=== PATIENT | female | born 1950 | race Caucasian/White ===

== ENCOUNTER 2021-04-05 13:28 | Day surgery (SDC) | payer MEDICARE, OTHER ==
[~2021-04-05] VITALS: Ht 165.1 cm; Wt 90.7 kg
[2021-04-05] MEDS ORDERED: ALEN70 (13:59)
[2021-04-05] MEDS ORDERED: ATEN25 (13:59)
[2021-04-05] MEDS ORDERED: ALLEGRA ALLERG180 MG (14:00)
[2021-04-05] MEDS ORDERED: DICLOFENAC SOD100 GM (14:00)
[2021-04-05] MEDS ORDERED: Flonase 0.05% N16 GM (14:01)
[2021-04-05] MEDS ORDERED: HYDCHL25 (14:01)
[2021-04-05] MEDS ORDERED: FLUOXETINE HCL20 M1 (14:01)
[2021-04-05] MEDS ORDERED: LOSA50 ×2 (14:01→14:02)
[2021-04-05] MEDS ORDERED: CYCL0.05OP (14:02)
[2021-04-05] MEDS ORDERED: ZOCOR20 MG (14:02)
[2021-04-05] MEDS ORDERED: OMEP20ER (14:02)
[2021-04-05] MEDS ORDERED: SOLIFENACIN SUC10 MG (14:03)
== END 2021-04-05 16:16 | disposition home or self-care (01) ==
LOC: ORSCSDS 13:28
PROVIDERS: Internal Medicine Gastroenterology
PROC: 0D757ZZ Dilation of Esophagus, Via Natural or Artificial Opening (ICD-10-PCS; principal; 2021-04-05 14:45)
PROC: 0DB78ZX Excision of Stomach, Pylorus, Via Natural or Artificial Opening Endoscopic, Diagnostic (ICD-10-PCS; principal; 2021-04-05 14:45)
PROC: 0DB58ZX Excision of Esophagus, Via Natural or Artificial Opening Endoscopic, Diagnostic (ICD-10-PCS; principal; 2021-04-05 14:45)
PROC: 0DBN8ZX Excision of Sigmoid Colon, Via Natural or Artificial Opening Endoscopic, Diagnostic (ICD-10-PCS; principal; 2021-04-05 14:45)
PROC: 0DBL8ZX Excision of Transverse Colon, Via Natural or Artificial Opening Endoscopic, Diagnostic (ICD-10-PCS; principal; 2021-04-05 14:45)
DX: R10.813 Right lower quadrant abdominal tenderness (principal); R10.13 Epigastric pain; K21.9 Gastro-esophageal reflux disease without esophagitis; K29.70 Gastritis, unspecified, without bleeding; Z86.010 Personal history of colon polyps; D12.3 Benign neoplasm of transverse colon; D12.5 Benign neoplasm of sigmoid colon; R13.14 Dysphagia, pharyngoesophageal phase; I10 Essential (primary) hypertension; Z79.899 Other long term (current) drug therapy
CPT/HCPCS: 88305; J2704; J7120

== ENCOUNTER → 2022-10-30 | Outpatient (CLI) | payer MEDICARE, OTHER ==
[~2022-10-30] MED LIST: ALEN70; ALLEGRA ALLERG180 MG; ATEN25; CYCL0.05OP; DICLOFENAC SOD100 GM; FLUOXETINE HCL20 M1; Flonase 0.05% N16 GM; HYDCHL25; LOSA50; OMEP20ER; SOLIFENACIN SUC10 MG; ZOCOR20 MG
== END | disposition home or self-care (01) ==
LOC: LAB 12:00 → LAB SHORT 12:00
DX: B34.9 Viral infection, unspecified (principal)
CPT/HCPCS: 87807

== ENCOUNTER → 2023-05-07 | Outpatient (CLI) | payer MEDICARE, OTHER ==
[2023-05-07 13:54] LABS: Candida species (DNA Probe) Negative (NEGATIVE); G. vaginalis (DNA Probe) Positive (NEGATIVE); T. vaginalis (DNA Probe) Negative (NEGATIVE)
== END | disposition home or self-care (01) ==
LOC: LAB 09:41 → LAB SHORT 09:41
PROVIDERS: Advanced Practice Midwife
DX: N76.0 Acute vaginitis (principal)
CPT/HCPCS: 87480; 87510; 87660

== ENCOUNTER → 2024-06-04 | Outpatient (CLI) | payer MEDICARE, OTHER ==
[~2024-06-04] MED LIST changes: +CARBIDOPA-LEVO1 EA18; +NORVASC5 MG
[2024-06-04 19:59] LABS: Bacterial Vaginosis PCR Negative (NEGATIVE); Candida Group, PCR NOT DETECTED (NOT DETECT); Candida glabrata-krusei, PCR NOT DETECTED (NOT DETECT)
== END | disposition home or self-care (01) ==
LOC: LAB 17:57 → LAB SHORT 17:57
PROVIDERS: Advanced Practice Midwife
DX: N76.0 Acute vaginitis (principal)
CPT/HCPCS: 87481; 87661; 87801